=== PATIENT | female | born 1985 | race Caucasian/White ===

== ENCOUNTER 2020-08-08 04:55 | Emergency (ER) | payer OTHER ==
[~2020-08-08] VITALS: Ht 167.6 cm; Wt 63.5 kg
--- NOTE | 2020-08-08 05:00 | NUR ---
ARRIVAL PT ARRIVED TO ER C/O LEFT THUMB PAIN. PT REPORTED WRESTLING AT [employer], HYPEREXTENDED THUMB. MILD BRUISING AND SWELLING NOTED. VITALS WNL, DOCUMENTED. ERP NOTIFIED.
[2020-08-08 05:13] VITALS: BP 111/73
[2020-08-08] MEDS ORDERED: TORADOL IM STA (05:13)
[2020-08-08] MEDS ORDERED: TORADOL ONE (05:23)
--- NOTE | 2020-08-08 05:26 | ER.PDOC ---
General Chief Complaint: Extremities Stated Complaint: HAND INJURY Time seen by MD: 05:19 Source: patient Exam Limitations: no limitations History of Present Illness Initial Comments Left thumb pain since last night. Patient hyperextended it while wrestling. Pain is worse with movement. Occurred: yesterday Severity: moderate Location of Injury: (L) fingers Modifying Factors: pain on movement Allergies: Coded Allergies: levofloxacin (Unverified Allergy, Unknown, ITCHING, SWELLING, 11/15/17) naproxen (Unverified Allergy, Unknown, HIVES, 11/15/17) Past Medical History Medical History: no pertinent history Surgical History: no surgical history Family History Significant Family History: no pertinent family hx Social History Alcohol Use: none Drug Use: none Review of Systems Constitutional: no symptoms reported EENTM: no symptoms reported Respiratory: no symptoms reported Cardiovascular: no symptoms reported Gastrointestinal: no symptoms reported Musculoskeletal: see HPI All Other Systems: Reviewed and Negative Physical Exam General Appearance: Alert, No Apparent Distress Hand: tenderness (left thum without deformity or swelling) Neuro: sensation nml, motor nml Vascular: no vascular compromise Tendons: tendon function nml Forearm/Elbow/Arm: uninjured above wrist Skin: warm/dry Head/ENT: nml inspection, pharynx nml Neck/Back: nml inspection, non-tender Resp/CVS: no resp distress, lungs clear, heart sounds nml, reg. rate & rhythm Abdomen: non-tender, no organomegaly Results/Orders Results/Orders Orders - J CARLOS WISE MD Ketorolac Tromethamine (Toradol) (08/08/20 05:13) Xr Hand Lt (08/08/20 05:13) Vital Signs Date Time Temp Pulse Resp B/P (MAP) Pulse Ox O2 Delivery O2 Flow Rate FiO2 08/08/20 05:13 97.9 75 14 97 08/08/20 05:13 97.9 75 14 EKG/XRAY/CT/US XRAY Comments: No acute bony abnormality of left thumb ER DEPART Departure Time of Disposition: 05:23 Disposition: 01 HOME, SELF-CARE Impression: Primary Impression: Injury of thumb, left Additional Impression: Left thumb sprain Condition: Stable Referrals: PCP,UNKNOWN (PCP) PRIMARY CARE PROVIDER Additional Instructions: Ice 3 times a day for 3 days Ibuprofen 600 mg 3 times a day as needed for pain Follow-up with your PCP in 1 week Return to ED if any concerns Duration or Time Spent with Pa: 10 min Problem Qualifiers Primary Impression: Injury of thumb, left Encounter type: initial encounter Qualified Codes: S69.92XA - Unspecified injury of left wrist, hand and finger(s), initial encounter Additional Impression: Left thumb sprain Encounter type: initial encounter Sprain of finger site: unspecified site Qualified Codes: S63.602A - Unspecified sprain of left thumb, initial encounter J CARLOS WISE MD Aug 08, 2020 05:26
--- NOTE | 2020-08-08 05:30 | NUR ---
MEDS GIVE PER ORDERS, PT NAVJOT WELL. GIANFRANCO BANDAGE TO LEFT HAND/THUMB FOR SUPPORT AND COMFORT. PT NAVJOT WELL.
--- NOTE | 2020-08-08 05:37 | DIREP ---
PROCEDURE:XRAY HAND MIN 3 VW-LT COMPARISON:None. INDICATIONS:left thumb pain FINDINGS: BONES:Normal. JOINTS:Normal. SOFT TISSUES:Normal. OTHER:No additional findings. CONCLUSION:Normal left hand. Dictated by: Wallace Christina M.D. on 08/08/2020 at 05:35 AM
== END 2020-08-08 05:35 | disposition home or self-care (01) ==
LOC: ER 04:55
DX: S63.602A Unspecified sprain of left thumb, initial encounter (principal); Z88.1 Allergy status to other antibiotic agents; Z88.6 Allergy status to analgesic agent; X58.XXXA Exposure to other specified factors, initial encounter; Y93.72 Activity, wrestling; Y92.89 Other specified places as the place of occurrence of the external cause; Y99.8 Other external cause status
CPT/HCPCS: 73130; 96372; 99283; J1885

== ENCOUNTER → 2020-08-10 | Outpatient (CLI) | payer OTHER ==
--- NOTE | 2020-08-10 14:34 | DIREP ---
PROCEDURE:XRAY FINGER-LT COMPARISON:None. INDICATIONS:LEFT THUMB PAIN FINDINGS: BONES:On the AP image of the thumb, there is a faint radiolucent line and tiny break in cortical bone along the lateral margin, base of the 1st distal phalanx. JOINTS:Normal. SOFT TISSUES:Normal. OTHER:No additional findings. CONCLUSION:There are findings suggestive of nondisplaced fracture of the left 1st distal phalanx. Recommend correlation with clinical findings and history. Dictated by: Brad Harrell M.D. on 08/10/2020 at 02:31 PM
== END | disposition home or self-care (01) ==
LOC: RAD 12:27
PROVIDERS: ATTEND Nurse Practitioner Family
DX: M79.645 Pain in left finger(s) (principal)
CPT/HCPCS: 73140-LT